=== PATIENT | female | born 1965 | race Two or more races ===

== ENCOUNTER 2020-01-03 13:36 | Outpatient (CLI) | payer MEDICAID ==
[~2020-01-03 13:36] MED LIST: SYNTHROID25 MCG ORAL
[2020-01-03 13:55] VITALS: BP 116/71
--- NOTE | 2020-01-03 14:08 | General Progress Note ---
Assessment/Plan Assessment/Plan: poor colon prep patient was offered to have repeat colon she wants to think about it Subjective ROS Limited/Unobtainable: Yes Allergies: Coded Allergies: No Known Allergies (Unverified , 10/02/19) Objective Last 24 Hour Vital Signs Date Time Temp Pulse Resp B/P (MAP) Pulse Ox O2 Delivery O2 Flow Rate FiO2 01/03/20 13:55 98.0 63 16 116/71 (86) 95 General Appearance: alert EENT: normal ENT inspection Neck: supple Cardiovascular: normal rate Respiratory/Chest: lungs clear Abdomen: normal bowel sounds, non tender, soft Brooks Kramer MD Jan 03, 2020 14:08
== END 2020-01-03 15:36 | disposition home or self-care (01) ==
LOC: PAN 13:36
DX: R10.9 Unspecified abdominal pain (principal)
CPT/HCPCS: 99212